=== PATIENT | female | born 1950 ===

== ENCOUNTER 2016-06-22 06:15 | Day surgery (SDC) | payer MEDICARE, OTHER ==
[2016-06-14 12:35] VITALS: BMI 28.7
[2016-06-22] MEDS ORDERED: Ciprofloxacin 0.3% OPTH SOLN OS SCH ×2 (06:45→11:00)
[2016-06-22] MEDS ORDERED: Flurbiprofen 0.03% Opht SOLN OS SCH ×2 (06:45→11:00)
[2016-06-22] MEDS ORDERED: Tropicamide 1% Opht SOLUTION OS SCH ×2 (06:45→11:00)
[2016-06-22] MEDS ORDERED: Phenylephrine 2.5% Opht Soln OS SCH ×2 (06:45→11:00)
[2016-06-22] MEDS ORDERED: acetaZOLAMIDE 500 mg SR Cap PO ONE ×2 (06:45→11:00)
[2016-06-22] MEDS ORDERED: Lactated Ringer's 1,000 ML IV ONE (07:05)
[2016-06-22] MEDS: Hyaluronidase Human, Recombi 150 U/ML VIAL ONE ×3 (08:08→08:51)
[2016-06-22] MEDS: Lidocaine 2% Inj (20ml) ONE ×2 (08:09→08:40)
[2016-06-22] MEDS: Povidone Iodine Ophthalmic 5% Soln ONE ×2 (08:10→08:40)
[2016-06-22] MEDS: Tetracaine 0.5% Ophth (OR ONLY) ONE ×2 (08:11→08:40)
[2016-06-22] MEDS: Tobramycin/Dexamethasone OPHT OINT ONE ×2 (08:12→09:03)
[2016-06-22] MEDS ORDERED: Midazolam 2 MG/2 ML VIAL ONE (08:35)
[2016-06-22] MEDS: Carbachol 0.01% IO ONE ×2 (08:41→08:50)
[2016-06-22] MEDS: Chondroitin/Hyaluronate Opth Syringe KIT (0.55 ml-0.5 ml) IO ONE ×2 (08:42→08:51)
[2016-06-22 09:44] VITALS: PULSE 70; RESP 20; O2SAT 97
[2016-06-22 10:14] VITALS: BP 117/48; TEMP 98.1
--- NOTE | 2016-06-22 10:56 | OP ---
PROCEDURE DATE: 06/22/2016 PREOPERATIVE DIAGNOSIS: CATARACT, LEFT EYE. POSTOPERATIVE DIAGNOSIS: CATARACT, LEFT EYE. OPERATIVE PROCEDURE: PHACOEMULSIFICATION, LEFT EYE, INSERTION OF POSTERIOR CHAMBER IMPLANT. ANESTHESIA TYPE: LOCAL INTRAVENOUS SEDATION. SURGEON: Dr. Gaudencio Lazaro. COSURGEON: Dr. Maged García. PROCEDURE: The patient was brought into the operating room, placed in supine position, prepped and dr aped in the usual fashion for ophthalmic surgery. Lid speculum inserted, lids and exposin g globe. A side port incision was made superiorly and inferiorly with a disposable sharp blade. Ant erior chamber was filled with Viscoat. A near clear corneal incision was made temporally with a 2.75 millimeter keratome. Capsulorrhexis was then performed with Utrata forceps. Hydrodissection sam d out with balanced salt solution. Nucleus was phacoemulsified. Remaining cortical fragments were r emoved with a split irrigation and aspiration system. The capsular sac was filled with Provisc. A p osterior chamber lens was then injected into the capsular sac and rotated into horizontal position. Provisc was aspirated out of the anterior chamber. The pupil was constricted with Miochol. The woun d was found to be watertight. Topical Betadine, Timoptic and TobraDex ointment and pressure patch we re applied. The patient tolerated the procedure well. Gaudencio Lazaro MD cc: [id number] TT: 06/22/2016 10:55:32 wa
[2016-06-22] MEDS ORDERED: Lactated Ringer's 500 ML IV ONE (11:00)
== END 2016-06-22 10:00 | disposition home or self-care (01) ==
LOC: C.SDS 06:15
PROVIDERS: ATTEND Ophthalmology
DX: H26.9 Unspecified cataract (principal)
CPT/HCPCS: 66984; 82948; J2250; J3470; J7120

== ENCOUNTER 2016-07-20 07:12 | Day surgery (SDC) | payer MEDICARE, OTHER ==
[2016-06-14 12:39] VITALS: BMI 28.7
[~2016-07-20 07:12] MED LIST: Ciprofloxacin 0.3% OPTH SOLN OD SCH; Flurbiprofen 0.03% Opht SOLN OD SCH; Lactated Ringer's 500 ML IV ONE; Phenylephrine 2.5% Opht Soln OD SCH; Tropicamide 1% Opht SOLUTION OD SCH; acetaZOLAMIDE 500 mg SR Cap PO ONE
[2016-07-20] MEDS ORDERED: Tetracaine 0.5% Ophth (OR ONLY) ONE (07:34)
[2016-07-20] MEDS ORDERED: Chondroitin/Hyaluronate Opth Syringe KIT (0.55 ml-0.5 ml) IO ONE (07:34)
[2016-07-20] MEDS ORDERED: Hyaluronidase Human, Recombi 150 U/ML VIAL ONE (07:34)
[2016-07-20] MEDS ORDERED: Povidone Iodine Ophthalmic 5% Soln ONE (07:34)
[2016-07-20] MEDS ORDERED: Lidocaine 2% Inj (20ml) ONE (07:34)
[2016-07-20] MEDS ORDERED: Carbachol 0.01% IO ONE (07:34)
[2016-07-20] MEDS ORDERED: Lactated Ringer's 500 ML IV ONE (08:00)
[2016-07-20] MEDS ORDERED: Midazolam 2 MG/2 ML VIAL ONE (10:24)
[2016-07-20] MEDS: Tobramycin/Dexamethasone OPHT OINT ONE ×2 (10:38→10:45)
--- NOTE | 2016-07-20 12:17 | OP ---
PROCEDURE DATE: 07/20/2016 PREOPERATIVE DIAGNOSIS: MATURE CATARACT, RIGHT EYE. POSTOPERATIVE DIAGNOSIS: MATURE CATARACT, RIGHT EYE. PROCEDURE: PHACOEMULSIFICATION - RIGHT EYE, INSERTION OF POSTERIOR CHAMBER IMPLANT. SURGEON: Gaudencio Lazaro MD. CO-SURGEON: Maged García MD. ANESTHESIA: LOCAL WITH INTRAVENOUS SEDATION. OPERATIVE PROCEDURE: PHACOEMULSIFICATION RIGHT EYE, INSERTION OF POSTERIOR CHAMBER IMPLANT. PROCEDURE: The patient was brought into the operating room, placed in supine position, prepped and dr aped in the usual fashion for ophthalmic surgery. Lid speculum inserted, lids and exposin g globe. A side port incision was made superiorly and inferiorly with a disposable sharp blade. Ant erior chamber was filled with Viscoat. A near clear corneal incision was made temporally with a 2.75 millimeter keratome. Capsulorrhexis was then performed with Utrata forceps. Hydrodissection sam d out with balanced salt solution. Nucleus was phacoemulsified. Remaining cortical fragments were r emoved with a split irrigation and aspiration system. The capsular sac was filled with Provisc. A p osterior chamber lens was then injected into the capsular sac and rotated into horizontal position. Provisc was aspirated out of the anterior chamber. The pupil was constricted with Miochol. The woun d was found to be watertight. Topical Betadine, Timoptic and TobraDex ointment and pressure patch we re applied. The patient tolerated the procedure well. Gaudencio Lazaro MD cc: 249 TT: 07/20/2016 12:16:25 jn
[2016-07-20 13:08] VITALS: BP 112/68; PULSE 66; RESP 18; TEMP 97.9; O2SAT 98
== END 2016-07-20 11:50 | disposition home or self-care (01) ==
LOC: C.SDS 07:12
PROVIDERS: ATTEND Ophthalmology
DX: H26.9 Unspecified cataract (principal)
CPT/HCPCS: 66984; 82948; J2250; J3010; J3470; J7120; V2632